=== PATIENT | female | born 1990 | race Two or more races ===

== ENCOUNTER 2017-05-12 11:20 | Inpatient (IN) | payer OTHER ==
--- NOTE | 2017-05-12 11:30 | PDOC ---
History of Present Illness <Pia Retana - Last Filed: 05/12/17 14:39> - History of Present Illness Initial Comments: 26 year old female with no PMH presenting with abdominal pain, nausea and vomiting that has been intermittent over the past two months. She was diagnosed with gallstones on CT two months prior and treated symptomatically in hopes that she would improve. She has been watching her diet but her symptoms haven't improved. She had emesis times 3 on the day of admission. Denies fevers, chills , diarrhea, constipation, chest pain or other sick symptoms. 05/12/17 16:34 <Ismael Wheeler - Last Filed: 05/12/17 18:42> - General Chief Complaint: Pain Stated Complaint: ABD PAIN Time Seen by Provider: 05/12/17 11:26 Past History <Pia Retana - Last Filed: 05/12/17 14:39> - Past Medical History Kidney Stones: Yes - Reproductive History Cervical CA: No Dysfunctional Uterine Bleeding: No Ectopic : No Endometrial CA: No Polycystic Ovaries: No Spontaneous : 1 - Immunization History Immunization Up to Date: Yes - Psycho/Social/Smoking Cessation Hx Anxiety: No Suicidal Ideation: No Smoking Status: No Smoking History: Current some day smoker Have you smoked in the past 12 months: No Number of Cigarettes Smoked Daily: 0 Information on smoking cessation initiated: No Hx Alcohol Use: No Drug/Substance Use Hx: No Substance Use Type: None <Ismael Wheeler - Last Filed: 05/12/17 18:42> - Past Medical History Allergies/Adverse Reactions: Allergies Allergy/AdvReac Type Severity Reaction Status Date / Time No Known Allergies Allergy Verified 05/12/17 11:21 Review of Systems - Review of Systems Constitutional: No: Chills, Diaphoresis, Fever HEENTM: No: Blurred Vision, Double Vision Respiratory: No: Cough, Shortness of Breath Cardiac (ROS): No: Chest Pain, Irregular Heart Rate ABD/GI: Yes: Nausea, Vomiting. No: Constipated, Diarrhea Neurological: No: Headache, Numbness, Paresthesia <Ismael Wheeler - Last Filed: 05/12/17 18:42> *Physical Exam - Vital Signs Last Vital Signs Temp Pulse Resp BP Pulse Ox 98.2 F 80 18 152/92 100 05/12/17 11:22 05/12/17 11:22 05/12/17 11:22 05/12/17 11:22 05/12/17 11:22 <Pia Retana - Last Filed: 05/12/17 14:39> - Vital Signs Last Vital Signs Temp Pulse Resp BP Pulse Ox 98.2 F 80 18 152/92 100 05/12/17 11:22 05/12/17 11:22 05/12/17 11:22 05/12/17 11:22 05/12/17 11:22 - Physical Exam General Appearance: Yes: Nourished, Appropriately Dressed. No: Apparent Distress HEENT: positive: EOMI, JOSE CRUZ, Normal ENT Inspection, Normal Voice Neck: positive: Trachea midline, Normal Thyroid, Supple. negative: Tender, Rigid Respiratory/Chest: positive: Lungs Clear, Normal Breath Sounds. negative: Chest Tender, Respiratory Distress, Accessory Muscle Use Cardiovascular: positive: Regular Rhythm, Regular Rate Gastrointestinal/Abdominal: positive: Normal Bowel Sounds, Tender (Slight epigastric tenderness), Flat, Soft. negative: Organomegaly Musculoskeletal: positive: Normal Inspection. negative: CVA Tenderness Extremity: positive: Normal Capillary Refill, Normal Inspection, Normal Range of Motion Integumentary: positive: Normal Color, Dry, Warm Neurologic: positive: Fully Oriented, Alert, Normal Mood/Affect, Normal Response <Ismael Wheeler - Last Filed: 05/12/17 18:42> Procedures - Bedside Ultrasound Bedside Ultrasound: Gallbladder <Pia Retana - Last Filed: 05/12/17 14:39> ED Treatment Course - LABORATORY CBC & Chemistry Diagram: 05/12/17 12:40 05/12/17 12:40 - ADDITIONAL ORDERS Additional order review: Laboratory Results 05/12/17 05/12/17 05/12/17 12:40 11:53 11:53 Sodium 139 Potassium 4.0 Chloride 105 Carbon Dioxide 26 Anion Gap 8 BUN 11 Creatinine 0.6 D Creat Clearance w eGFR > 60 Random Glucose 74 Calcium 8.5 Total Bilirubin 0.6 AST 16 ALT 26 D Alkaline Phosphatase 58 Total Protein 7.0 Albumin 3.9 Lipase 118 Urine Color Yellow Urine Appearance Slcloudy Urine pH 5.0 D Urine Protein Negative Urine Glucose (UA) Negative Urine Ketones Trace H Urine Blood Negative Urine Nitrite Negative Urine Bilirubin Negative Urine Urobilinogen Negative Ur Leukocyte Esterase Negative Urine HCG, Qual Negative 05/12/17 12:40 RBC 4.12 D MCV 86.1 MCHC 32.7 RDW 15.3 MPV 9.5 D Neutrophils % 73.0 Lymphocytes % 20.9 D Monocytes % 4.4 Eosinophils % 1.0 D Basophils % 0.7 D <Pia Retana - Last Filed: 05/12/17 14:39> - LABORATORY CBC & Chemistry Diagram: 05/12/17 12:40 05/12/17 12:40 <Ismael Wheeler - Last Filed: 05/12/17 18:42> Medical Decision Making - Medical Decision Making 05/12/17 14:39 focused ED ultrsaound RUQ , indication epigastric pain. RUQ scanned in two planes with curvilinear probe. multiple stones noted, no wall thickening, no wall edema. no pericholecystic fluid. negative sonographic marin's . CBD measured 3.9mm anterior gallbladder wall 2.9mm impression: cholelithiaisis <Pia Retana - Last Filed: 05/12/17 14:39> - Medical Decision Making 26 year old female with known gallstones on CT confirmed today on bedside ultrasound with inability to tolerate PO and severe abdominal pain. Patient should be admitted for cholecystectomy. Spoke with Dr. Llanos and he is OK with patient coming in for procedure. Labs WNL and will admit the patient to medicine for cholecystectomy,. 05/12/17 18:26 <Ismael Wheeler - Last Filed: 05/12/17 18:42> *DC/Admit/Observation/Transfer <Pia Retana - Last Filed: 05/12/17 14:39> - Discharge Dispostion Admit: Yes - Attestations Physician Attestion: 05/12/17 15:57 I, Dr. Ismael Wheeler, attest that this document has been prepared under my direction and personally reviewed by me in its entirety. I further attest, that it accurately reflects all work, treatment, procedures and medical decision -making performed by me. 05/12/17 18:42 <Ismael Wheeler - Last Filed: 05/12/17 18:42> Diagnosis at time of Disposition: Cholelithiases - Referrals
[2017-05-12 12:34] LABS: URINE APPEARANCE SLCLOUDY; URINE BILIRUBIN NEGATIVE (NEGATIVE); URINE BLOOD NEGATIVE (NEGATIVE); URINE COLOR YELLOW; URINE GLUCOSE (UA) NEGATIVE (NEGATIVE); URINE KETONE TRACE (NEGATIVE); URINE LEUK ESTERASE NEGATIVE (NEGATIVE); URINE NITRITE NEGATIVE (NEGATIVE); URINE PROTEIN NEGATIVE (NEGATIVE); URINE UROBILINOGEN NEGATIVE mg/dL (0.2-1.0)
[2017-05-12 13:04] LABS: BASOPHIL 0.7 % (0-2.0); MCH 28.1 pg (25.7-33.7); MCHC 32.7 g/dl (32.0-36.0); MEAN CELL VOLUME 86.1 fl (80-96); MEAN PLT VOLUME 9.5 fl (7.5-11.1); PLATELET COUNT 201 K/MM3 (134-434); RDW 15.3 % (11.6-15.6); WHITE BLOOD COUNT 8.3 K/mm3 (4.0-10.0)
[2017-05-12 13:47] LABS: ALBUMIN 3.9 g/dl (3.4-5.0); ANION GAP 8 (8-16); BILIRUBIN,TOTAL 0.6 mg/dL (0.2-1.0); CALCIUM 8.5 mg/dL (8.5-10.1); CO2 26 mmol/L (21-32); CREATININE 0.6 mg/dL (0.55-1.02); GLUCOSE,RANDOM 74 mg/dL (74-106); SGOT/AST 16 U/L (15-37); SGPT/ALT 26 U/L (12-78)
[2017-05-12 13:48] LABS: ALK PHOS 58 U/L (45-117)
[2017-05-12] MEDS ORDERED: MAG HYDROX/AL HYDROX/SIMETH 30 ML UNIT-DOSE CUP PO ONE (14:30)
[2017-05-12] MEDS ORDERED: LIDOCAINE VISCOUS 2% ORAL/TOP 20 ML UNIT-DOSE CUP MM ONE (14:30)
[2017-05-12] MEDS ORDERED: FAMOTIDINE 20 MG/50 ML IVPB 50 ML IVPB ONE ×2 (14:31→15:00)
[2017-05-12] MEDS ORDERED: SODIUM CHLORIDE 0.9% 1000 ML INFUS.BAG IV ONE (14:34)
[2017-05-12] MEDS ORDERED: ONDANSETRON *ODT* 4 MG TABLET SL ONE (14:35)
--- NOTE | 2017-05-12 14:36 | PDOC ---
Attending Attestation - Resident Resident Name: SummerLdfarzad - ED Attending Attestation I have performed the following: I have examined & evaluated the patient, The case was reviewed & discussed with the resident, I agree w/resident's findings & plan, Exceptions are as noted - HPI HPI: 05/12/17 14:31 26 yo F with h/o cholelithiasis here wtih c/o epigastric pain, started few weeks ago. was intermittent for 2 months, but last night became a lot worse, did have nausea and vomiting x one last pm and today. has not eaten anything today out of pain. no f/c no urinary complaints. not . - Physicial Exam PE: 05/12/17 14:34 awake alert lungs clear heart rrr no mrg abd soft mild epigastric pain ttp, no rebound no guarding. ext wpp no edema no swelling. nuero alert and oriented x 3. - Medical Decision Making 05/12/17 14:35 26 yo F with h/o cholelithiasis, here with epigastric pain. differential cholecystitis cholelithiasis, biliary obstruciton gastritis uti, pancreatitis. plan pain control antacid antiemetics, ivf, bedisde ruq ultrasound labs. reasess. 05/12/17 14:36 focused ED ultrsaound RUQ , indication epigastric pain. RUQ scanned in two planes with curvilinear probe. multiple stones noted, no wall thickening, no wall edema. no pericholecystic fluid. negative sonographic marin's . CBD measured 3.9mm anterior gallbladder wall 2.9mm impression: cholelithiaisis
[2017-05-12] MEDS ORDERED: MAG HYDROX/AL HYDROX/SIMETH 30 ML UNIT-DOSE CUP ONE (14:59)
[2017-05-12] MEDS ORDERED: ONDANSETRON 4 MG/2 ML VIAL ONE (14:59)
[2017-05-12] MEDS ORDERED: SODIUM CHLORIDE 1,000 ML IV SCH (17:45)
--- NOTE | 2017-05-12 17:58 | HP ---
CHIEF COMPLAINT: intractable vomiting and abdominal pain PCP: none HISTORY OF PRESENT ILLNESS: 26 yr old woman with hx of nephrolithiasis presents with intractable nonbloody, occasionally bilious vomiting with every meal for the past 2 months. Vomiting occurred regardless of the type of meal, would occur with fatty food and with fruit. Typically consisted of food or yellow-watery in consistency, would occur shortly after eating. Preceded by epigastric and ruq pain that would radiate to the back and sometimes felt like it was burning up her throat. this morning she vomited at 9am, and felt "very bad" epigastric pain radiating up that felt like "burning." She saw dr. Wiggins few weeks ago think this may have been renal stones, he did an abdominal CT; 03/20: which showed gallstones. she tried changing her diet but it did not improve the abdominal pain, or vomiting. In the last 2 months she has been losing weight. She would normally take tylenol which offers some relief. ER course was notable for: (1) famotadine, mylanta (2) discussed case with Dr. 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 several years ago(does not recall trimester) PAST SURGICAL HISTORY: none Social History: Smoking: no cigarettes, smokes [employer] 3xweek for past year Alcohol: socially Drugs: occasional marijuan, last use 2 weeks ago Family History: maternal great grandfather with DM, older sister with cholethiasis who under went cholecystectomy at age 23, mother with HTN, younger sister who had appendectomy at age 12 Allergies No Known Allergies Allergy (Verified 05/12/17 11:21) HOME MEDICATIONS: Has implanted control in her left upper arm REVIEW OF SYSTEMS CONSTITUTIONAL: Present: weight change Absent: fever, chills, diaphoresis, generalized weakness, malaise, loss of appetite HEENT: Absent: rhinorrhea, nasal congestion, throat pain, throat swelling, difficulty swallowing, mouth swelling, ear pain, eye pain, visual changes CARDIOVASCULAR: Absent: chest pain, syncope, palpitations, irregular heart rate, lightheadedness , peripheral edema RESPIRATORY: Absent: cough, shortness of breath, dyspnea with exertion, orthopnea, wheezing, stridor, hemoptysis GASTROINTESTINAL: Present:abdominal pain, nausea, vomiting, Absent: abdominal distension, diarrhea, constipation, melena, hematochezia GENITOURINARY: Absent: dysuria, frequency, urgency, hesitancy, hematuria, flank pain, genital pain MUSCULOSKELETAL: Absent: myalgia, arthralgia, joint swelling, back pain, neck pain SKIN: Absent: rash, itching, pallor HEMATOLOGIC/IMMUNOLOGIC: Absent: easy bleeding, easy bruising, lymphadenopathy, frequent infections ENDOCRINE: Absent: unexplained weight gain, unexplained weight loss, heat intolerance, cold intolerance NEUROLOGIC: Absent: headache, focal weakness or paresthesias, dizziness, unsteady gait, seizure, mental status changes, bladder or bowel incontinence PHYSICAL EXAMINATION GENERAL: Awake, alert, and fully oriented, in no acute distress. HEAD: Normal with no signs of trauma. EYES: Pupils equal, round and reactive to light, extraocular movements intact, sclera anicteric, conjunctiva clear. No lid lag. EARS, NOSE, THROAT: Ears normal, nares patent, oropharynx clear without exudates. Moist mucous membranes. NECK: Normal range of motion, supple without lymphadenopathy, JVD, or masses. LUNGS: Breath sounds equal, clear to auscultation bilaterally. No wheezes, and no crackles. No accessory muscle use. HEART: Regular rate and rhythm, normal S1 and S2 without murmur, rub or gallop. ABDOMEN: Soft, tender in RUQ, negative marin's/obturator/psoas, not distended, normoactive bowel sounds, + guarding in RUQ, no rebound, no masses. No hepatomegaly or splenomegaly. MUSCULOSKELETAL: Normal range of motion at all joints. No bony deformities or tenderness. No CVA tenderness. UPPER EXTREMITIES: 2+ radial pulses, warm, well-perfused. No cyanosis. No clubbing. No peripheral edema. LOWER EXTREMITIES: 2+ dp pulses, warm, well-perfused. No calf tenderness. No peripheral edema. 2 punctate scabs on 1st digit of right foot NEUROLOGICAL: Cranial nerves II-XII intact. Normal speech. PSYCHIATRIC: Cooperative. Good eye contact. Appropriate mood and affect. SKIN: Warm, dry, normal turgor, no rashes or lesions noted, normal capillary refill. ASSESSMENT/PLAN: 26 yr old woman with nephrolithias presents with RUQ abdominal pain and intractable vomiting for 2 months with associated weight loss admitted for cholecystectomy. #Cholelithiasis - likely cause of RUQ pain and vomiting - treated in the ED with famotadine, feels more comfortable, was tolerating chicken soup when examined - as per Dr. Llanos will be taken to the OR for cholecystectomy tomorrow morning - NPO @ midnight, IVF NS @100/hr, famotadine BID IVPB, type and screen #DVT: early ambulation, low risk #Diet: NPO for surgery #Activity: encourage ambulation #F/E/N: NS/no repletion at this time/NPO Visit type - Emergency Visit Emergency Visit: Yes ED Registration Date: 05/12/17 Care time: The patient presented to the Emergency Department on the above date and was hospitalized for further evaluation of their emergent condition. - New Patient This patient is new to me today: Yes Date on this admission: 05/12/17 - Critical Care Critical Care patient: No
[2017-05-12 18:35] VITALS: BMI 29.3
--- NOTE | 2017-05-12 18:47 | PN ---
Teaching Attending Note Name of Resident: Darien Cherry ATTENDING PHYSICIAN STATEMENT I saw and evaluated the patient. I reviewed the resident's note and discussed the case with the resident. I agree with the resident's findings and plan as documented. SUBJECTIVE: No fever or chills, no shortness of breath, c/o having epigastric pain after eating, and vomits after eating for the past 2 months. OBJECTIVE: Vital Signs Temperature 97 F L 05/12/17 18:12 Pulse Rate 76 05/12/17 18:12 Respiratory Rate 18 05/12/17 18:12 Blood Pressure 141/86 05/12/17 18:12 O2 Sat by Pulse Oximetry (%) 100 05/12/17 18:12 CBCD WBC 8.3 K/mm3 (4.0-10.0) D 05/12/17 12:40 RBC 4.12 M/mm3 (3.60-5.2) D 05/12/17 12:40 Hgb 11.6 GM/dL (10.7-15.3) D 05/12/17 12:40 Hct 35.5 % (32.4-45.2) D 05/12/17 12:40 MCV 86.1 fl (80-96) 05/12/17 12:40 MCHC 32.7 g/dl (32.0-36.0) 05/12/17 12:40 RDW 15.3 % (11.6-15.6) 05/12/17 12:40 Plt Count 201 K/MM3 (134-434) D 05/12/17 12:40 MPV 9.5 fl (7.5-11.1) D 05/12/17 12:40 CMP Sodium 139 mmol/L (136-145) 05/12/17 12:40 Potassium 4.0 mmol/L (3.5-5.1) 05/12/17 12:40 Chloride 105 mmol/L (98-107) 05/12/17 12:40 Carbon Dioxide 26 mmol/L (21-32) 05/12/17 12:40 Anion Gap 8 (8-16) 05/12/17 12:40 BUN 11 mg/dL (7-18) 05/12/17 12:40 Creatinine 0.6 mg/dL (0.55-1.02) D 05/12/17 12:40 Creat Clearance w eGFR > 60 (>60) 05/12/17 12:40 Random Glucose 74 mg/dL (74-106) 05/12/17 12:40 Calcium 8.5 mg/dL (8.5-10.1) 05/12/17 12:40 Total Bilirubin 0.6 mg/dL (0.2-1.0) 05/12/17 12:40 AST 16 U/L (15-37) 05/12/17 12:40 ALT 26 U/L (12-78) D 05/12/17 12:40 Alkaline Phosphatase 58 U/L (45-117) 05/12/17 12:40 Total Protein 7.0 g/dl (6.4-8.2) 05/12/17 12:40 Albumin 3.9 g/dl (3.4-5.0) 05/12/17 12:40 Current Medications Generic Name Dose Route Start Last Admin Trade Name Freq PRN Reason Stop Dose Admin Sodium Chloride 1,000 mls @ 75 mls/hr 05/12/17 17:45 05/12/17 18:16 Normal Saline - IV 75 mls/hr ASDIR KELLEE Administration Home Medications Medication Instructions Recorded Acetaminophen [Tylenol] 325 mg PO Q4H PRN 05/12/[address]; 03/20: which showed gallstones PE: as per resident's note. Abdomen: NT,NR,ND , positive for BS, received pain medication ASSESSMENT AND PLAN: 26 yr old woman with nephrolithias presents with RUQ abdominal pain and intractable vomiting for 2 months with associated weight loss admitted for cholecystectomy. #Acute Cholelithiasis - likely cause of RUQ pain and vomiting on IV pepcid as per Dr. Llanos will be taken to the OR for cholecystectomy tomorrow morning - NPO after midnight, IVF NS @100/hr, famotadine BID IVPB, type and screen #DVT: early ambulation, low risk
[2017-05-12 20:38] LABS: INR 1.19 (0.82-1.09); PROTHROMBIN TIME (PATIENT) 13.1 SEC (9.98-11.88)
[2017-05-12 20:41] LABS: ACTIVATED PTT 31.2 SECONDS (26.9-34.4)
[2017-05-12] MEDS: FAMOTIDINE 20 MG/50 ML IVPB 50 ML IVPB SCH (21:42)
--- NOTE | 2017-05-13 08:39 | CONSULT ---
- Consultation REQUESTING PROVIDER: ER MD CONSULT REQUEST: We have been asked to surgically evaluate this patient for abdominal pain. PCP:Myron Braun MD HISTORY OF PRESENT ILLNESS: 26 y/o female presented to the ER w/ recurrent abdominal pain and nausea and vomiting; she was w/u'ed as an outpatient w/ a CT scan of the a/p for presumed kidney stones; she was found to have cholelithiasis and told by the urologist that if she "changed her diet her stones would dissolve"; she came her b/o unrelenting pain. PMHx: none PSHx: none Home Medications Medication Instructions Recorded Acetaminophen [Tylenol] 325 mg PO Q4H PRN 05/12/17 Allergies Allergy/AdvReac Type Severity Reaction Status Date / Time No Known Allergies Allergy Verified 05/12/17 11:21 PHYSICAL EXAM: GENERAL: Awake, alert, and fully oriented, in no acute distress. HEAD: Normal with no signs of trauma. EYES:, sclera anicteric, conjunctiva clear. NECK: Normal ROM, supple without lymphadenopathy, JVD, or masses. ABDOMEN: Soft, slight RUQ tenderness, not distended, normoactive bowel sounds, active guarding, no rebound, no masses. No organomegaly. No hernias MUSCULOSKELETAL: Normal ROM at all joints. No bony deformities or tenderness. No CVA tenderness. UPPER EXTREMITIES: 2+ pulses, warm, well-perfused. No cyanosis. Cap refill <2 seconds. No peripheral edema. LOWER EXTREMITIES: 2+ pulses, warm, well-perfused. No calf tenderness. No peripheral edema. NEUROLOGICAL: Normal speech, gait not observed. PSYCH: Cooperative. Good eye contact. Appropriate mood and affect. SKIN: Warm, dry, normal turgor, no rashes or lesions noted. Vital Signs Temperature 97 F L 05/12/17 18:12 Pulse Rate 76 05/12/17 18:12 Respiratory Rate 18 05/12/17 18:12 Blood Pressure 141/86 05/12/17 18:12 O2 Sat by Pulse Oximetry (%) 100 05/12/17 18:12 Lab Results WBC 8.3 K/mm3 (4.0-10.0) D 05/12/17 12:40 RBC 4.12 M/mm3 (3.60-5.2) D 05/12/17 12:40 Hgb 11.6 GM/dL (10.7-15.3) D 05/12/17 12:40 Hct 35.5 % (32.4-45.2) D 05/12/17 12:40 MCV 86.1 fl (80-96) 05/12/17 12:40 MCHC 32.7 g/dl (32.0-36.0) 05/12/17 12:40 RDW 15.3 % (11.6-15.6) 05/12/17 12:40 Plt Count 201 K/MM3 (134-434) D 05/12/17 12:40 Sodium 139 mmol/L (136-145) 05/12/17 12:40 Potassium 4.0 mmol/L (3.5-5.1) 05/12/17 12:40 Chloride 105 mmol/L (98-107) 05/12/17 12:40 Carbon Dioxide 26 mmol/L (21-32) 05/12/17 12:40 Anion Gap 8 (8-16) 05/12/17 12:40 BUN 11 mg/dL (7-18) 05/12/17 12:40 Creatinine 0.6 mg/dL (0.55-1.02) D 05/12/17 12:40 Random Glucose 74 mg/dL (74-106) 05/12/17 12:40 Calcium 8.5 mg/dL (8.5-10.1) 05/12/17 12:40 Blood Type O POSITIVE 05/12/17 19:45 Antibody Screen Negative 05/12/17 19:45 INR 1.19 (0.82-1.09) H 05/12/17 19:45 LFT's and bili WNL; US /CT scan reviewed. IMP: biliary colic PLAN: Suggest lap deepika possible open which the patient is amenable to; r/b/t/a' s d/w her and she wishes to proceed. Chavez Llanos MD FACS Visit type - Case Type Case Type: ED Admission - Emergency Emergency Visit: Yes ED Registration Date: 05/12/17 Care time: The patient presented to the Emergency Department on the above date and was hospitalized for further evaluation of their emergent condition. - New patient This patient is new to me today: Yes Date on this admission: 05/13/17 - Critical Care Critical Care patient: No
[2017-05-13] MEDS: FAMOTIDINE 20 MG/50 ML IVPB 50 ML IVPB SCH ×2 (09:08→21:25)
[2017-05-13] MEDS ORDERED: ROCURONIUM BROMIDE 50 MG/5 ML VIAL ONE (11:58)
[2017-05-13] MEDS ORDERED: PROPOFOL 20 ML ONE (11:58)
[2017-05-13] MEDS ORDERED: LIDOCAINE HCL 2% (20ML MULTI-DOSE VIAL) NR ONE (11:58)
[2017-05-13] MEDS ORDERED: MIDAZOLAM HCL 2 MG/2 ML SINGLE DOSE VIAL ONE (11:58)
[2017-05-13] MEDS ORDERED: BUPIVACAINE HCL/PF 0.5% (5MG/ML) 10 ML VIAL ONE (12:49)
[2017-05-13] MEDS ORDERED: ceFAZolin SODIUM 1 GM VIAL ONE (12:51)
[2017-05-13] MEDS ORDERED: ceFAZolin SODIUM 1 GM VIAL IVPB ONE (12:53)
[2017-05-13] MEDS ORDERED: HYDROmorphone HCL CARPU-JECT 1 MG/1 ML DISP.SYRIN IVPUSH PRN (13:49)
[2017-05-13] MEDS ORDERED: PROMETHAZINE HCL 25 MG/1 ML VIAL IVPUSH PRN ×2 (13:49→15:37)
[2017-05-13] MEDS ORDERED: NEOSTIGMINE METHYLSULFATE 0.5 MG/ML - 10 ML MDV ONE (14:49)
[2017-05-13] MEDS ORDERED: GLYCOPYRROLATE 0.2 MG/1 ML VIAL ONE (14:49)
[2017-05-13] MEDS ORDERED: BUPIVACAINE HCL/PF 0.5% (5MG/ML) 10 ML VIAL IJ ONE ×2 (14:50)
[2017-05-13] MEDS ORDERED: KETOROLAC TROMETHAMINE 30 MG/1 ML VIAL ONE (14:55)
[2017-05-13] MEDS ORDERED: DEXAMETHASONE SOD PHOSPHATE 4 MG/1 ML VIAL ONE (14:55)
--- NOTE | 2017-05-13 15:06 | OP ---
Operative Note - Note: Operative Date: 05/13/17 Pre-Operative Diagnosis: cholelithiasis Operation: laparoscopic cholecystectomy Post-Operative Diagnosis: Same as Pre-op Surgeon: Chavez Llanos Daub Color Mixer: Karli Diaz Anesthesiologist/HOT REPAIRMAN: Elicia Dunaway Anesthesia: General Estimated Blood Loss (mls): 30 Fluid Volume Replaced (mls): 1,600 Operative Report Dictated: Yes
[2017-05-13] MEDS ORDERED: oxyCODONE HCL 5 MG TABLET PO PRN ×2 (15:09)
[2017-05-13] MEDS ORDERED: ONDANSETRON 4 MG/2 ML VIAL ONE (15:25)
[2017-05-13] MEDS: SODIUM CHLORIDE 1,000 ML IV SCH ×2 (16:02→23:05)
--- NOTE | 2017-05-13 18:06 | PN ---
Physical Exam: SUBJECTIVE: Patient seen and examined this AM. No CP, no SOB, no fevers, no chills. OBJECTIVE: Vital Signs Period Temp Pulse Resp BP Sys/Oliver Pulse Ox Last 24 Hr 97 F-98.5 F 8-100 14-20 125-141/70-86 98-100 GEN: AAOx3, NAD HEENT: PERRLA, EOMi, No cervical LAD CV: S1, S2, RRR, 2/6 systolic murmur LUNG: CTABL, no wheezes Abd: RUQ tenderness to palpation, soft, no guarding, no rebound MSK: No edema, no erythema, normal ROM Neuro: CN 2-12 intact, sensation intact, reflexes 2+, MSK 5/5 Laboratory Results - last 24 hr 05/12/17 05/12/17 19:45 19:45 INR 1.19 H PTT (Actin FS) 31.2 Blood Type O POSITIVE Antibody Screen Negative Active Medications Generic Name Dose Route Start Last Admin Trade Name Freq PRN Reason Stop Dose Admin Acetaminophen 650 mg 05/13/17 17:41 Tylenol - PO Q6H PRN FEVER OR PAIN Heparin Sodium (Porcine) 5,000 unit 05/13/17 22:00 Heparin - SQ TID KELLEE Famotidine/Sodium Chloride 50 mls @ 100 mls/hr 05/13/17 22:00 Pepcid 20 Mg Premixed Ivpb - IVPB BID KELLEE Sodium Chloride 1,000 mls @ 75 mls/hr 05/13/17 15:37 05/13/17 16:02 Normal Saline - IV 0 mls ASDIR KELLEE Administration Ketorolac Tromethamine 30 mg 05/13/17 23:00 Toradol Injection - IVPUSH 05/18/17 22:59 Q8H-IV KELLEE Oxycodone HCl 5 mg 05/13/17 15:09 Roxicodone - PO Q6H PRN PAIN LEVEL 1-5 Oxycodone HCl 10 mg 05/13/17 15:09 Roxicodone - PO Q6H PRN PAIN LEVEL 6-10 Promethazine HCl 12.5 mg 05/13/17 15:37 Phenergan Injection - IVPUSH 05/13/17 19:50 Q6H PRN NAUSEA-FOR RESCUE AFTER 15 MIN ASSESSMENT/PLAN: Ms. Parker is a 26 yr old woman with nephrolithias presents with RUQ abdominal pain and intractable vomiting for 2 months with associated weight loss admitted for cholecystectomy. # Cholelithiasis - Will go for cholecystectomy today - NPO until postop - IVNS 100cc/hr # ?GERD - Pt on famotidine after epigastric pain s/p emesis - Feels much better # FEN - Fluids: 100cc/hr IVNS - Electrolytes: No abnormalities - Nutrition: NPO # Prophylaxis - DVT: Hep SQ 5,000 TiD - GI: Not indicated - Deconditioning: pt is ambulatory # Dispo - Likely d/c tomorrow after surgery Visit type - Emergency Visit Emergency Visit: No - New Patient This patient is new to me today: No - Critical Care Critical Care patient: No - Discharge Referral Referred to [facility] Med P.C.: No
--- NOTE | 2017-05-13 18:25 | SURG ---
Surgery Feed Mill Manager Note Feed Mill Manager: Karli Diaz PA-C Date of Service: 05/13/17 Diagnosis: cholelithiasis Procedure: laparoscopic cholecystectomy I was present for the entirety of the operative procedure. For further detail, please refer to operative report. Visit type - Case Type Case Type: ED Admission - Emergency Emergency Visit: Yes ED Registration Date: 05/12/17 Care time: The patient presented to the Emergency Department on the above date and was hospitalized for further evaluation of their emergent condition. - New patient This patient is new to me today: Yes Date on this admission: 05/13/17 - Critical Care Critical Care patient: No
[2017-05-13] MEDS: HEPARIN NA (PORCINE) 5,000 UNITS/ML 1ML VIAL SQ SCH (21:25)
[2017-05-13] MEDS ORDERED: KETOROLAC TROMETHAMINE 30 MG/1 ML VIAL IVPUSH SCH (23:00)
[2017-05-14] MEDS: HEPARIN NA (PORCINE) 5,000 UNITS/ML 1ML VIAL SQ SCH ×2 (06:11→13:41)
[2017-05-14 07:38] LABS: BASOPHIL 0.2 % (0-2.0); MCHC 32.4 g/dl (32.0-36.0); MEAN CELL VOLUME 86.4 fl (80-96); MEAN PLT VOLUME 9.9 fl (7.5-11.1); NEUTROPHILS 83.9 % (42.8-82.8); PLATELET COUNT 211 K/MM3 (134-434); RDW 15.4 % (11.6-15.6); WHITE BLOOD COUNT 12.9 K/mm3 (4.0-10.0)
[2017-05-14 08:01] LABS: ALBUMIN 3.7 g/dl (3.4-5.0); ANION GAP 10 (8-16); BILIRUBIN,DIRECT 0.2 mg/dL (0.0-0.2); BILIRUBIN,TOTAL 0.7 mg/dL (0.2-1.0); CALCIUM 8.7 mg/dL (8.5-10.1); CO2 24 mmol/L (21-32); CREATININE 0.7 mg/dL (0.55-1.02); GLUCOSE,RANDOM 85 mg/dL (74-106); SGOT/AST 31 U/L (15-37); SGPT/ALT 65 U/L (12-78); TOT PROT 6.8 g/dl (6.4-8.2)
[2017-05-14 08:02] LABS: ALK PHOS 60 U/L (45-117)
--- NOTE | 2017-05-14 08:21 | PN ---
Teaching Attending Note Name of Resident: John Fontanez ATTENDING PHYSICIAN STATEMENT I saw and evaluated the patient. I reviewed the resident's note and discussed the case with the resident. I agree with the resident's findings and plan as documented. SUBJECTIVE: OBJECTIVE: ASSESSMENT AND PLAN: 26 yr old woman with nephrolithias presents with RUQ abdominal pain and intractable vomiting for 2 months with associated weight loss admitted for cholecystectomy. #Acute Cholelithiasis - likely cause of RUQ pain and vomiting on IV pepcid as per Dr. Llanos will be taken to the OR for cholecystectomy tomorrow morning - NPO after midnight, IVF NS @100/hr, famotadine BID IVPB, type and screen #DVT: early ambulation, low risk
[2017-05-14] MEDS: FAMOTIDINE 20 MG/50 ML IVPB 50 ML IVPB SCH (09:34)
--- NOTE | 2017-05-14 09:36 | PN ---
Progress Note (short form) - Note Progress Note: Attending Surgeon POD #1 s/p lap deepika Minimal c/o pain; voided post op; tolerated clear liquid diet VSS AF abdo-soft; port site tenderness; dressings C/DI; RAEANN serosanguinous LFT's/labs reviewed INP: doing well PLAN: OOB; advance diet; leave drain until later today. Chavez Llanos MD FACS
[2017-05-14] MEDS: ACETAMINOPHEN 325 MG TABLET (FP) PO PRN ×2 (09:37→17:29)
--- NOTE | 2017-05-14 11:07 | PN ---
Progress Note (short form) - Note Progress Note: Anesthesia post op Pt seen and examined S:alert aND AWAKE O: Vital Signs Temperature 98.3 F 05/14/17 09:30 Pulse Rate 72 05/14/17 09:30 Respiratory Rate 18 05/14/17 09:30 Blood Pressure 143/75 05/14/17 09:30 O2 Sat by Pulse Oximetry (%) 97 05/14/17 03:00 CBC, BMP 05/14/17 06:50 05/14/17 06:50 a/P: Current Active Problems Cholelithiases (Acute) s/p lap deepika Doing well post op Continue current care Ken Diez MD
[2017-05-14 14:32] VITALS: TEMP 98.6
--- NOTE | 2017-05-14 14:44 | PN ---
Teaching Attending Note Name of Resident: John Fontanez ATTENDING PHYSICIAN STATEMENT I saw and evaluated the patient. I reviewed the resident's note and discussed the case with the resident. I agree with the resident's findings and plan as documented. SUBJECTIVE: OBJECTIVE: Vital Signs Period Temp Pulse Resp BP Sys/Oliver Pulse Ox Last 24 Hr 97.6 F-98.9 F 8-100 14-22 123-153/62-88 97-100 ASSESSMENT AND PLAN:
--- NOTE | 2017-05-14 17:07 | PN ---
Progress Note (short form) - Note Progress Note: RAEANN drain removed intact, 2x2 gauze/ tegaderm applied. The patient tolerated a regular diet and is stable for discharged. D/w the medical team the plan. Pt may shower in the am.
[2017-05-14 17:11] VITALS: BP 141/86; PULSE 70
--- NOTE | 2017-05-14 21:08 | DS ---
Physical Exam: SUBJECTIVE: Patient seen and examined this AM. She had no complaints. No fevers , no chills, no SOB, no CP. Recovering well. OBJECTIVE: Vital Signs Period Temp Pulse Resp BP Sys/Oliver Pulse Ox Last 24 Hr 98.3 F-98.9 F 67-72 18-20 123-143/62-86 97-100 PHYSICAL EXAM GEN: AAOx3, NAD HEENT: PERRLA, EOMi, No cervical LAD CV: S1, S2, RRR, 2/6 systolic murmur LUNG: CTABL, no wheezes Abd: RUQ tenderness to palpation, soft, no guarding, no rebound MSK: No edema, no erythema, normal ROM Neuro: CN 2-12 intact, sensation intact, reflexes 2+, MSK 5/5 LABS Laboratory Results - last 24 hr 05/14/17 05/14/17 06:50 06:50 WBC 12.9 H D RBC 4.19 Hgb 11.7 Hct 36.3 MCV 86.4 MCH 28.0 MCHC 32.4 RDW 15.4 Plt Count 211 MPV 9.9 Neutrophils % 83.9 H Lymphocytes % 11.4 D Monocytes % 4.5 Eosinophils % 0.0 D Basophils % 0.2 Sodium 141 Potassium 4.0 Chloride 107 Carbon Dioxide 24 Anion Gap 10 BUN 7 D Creatinine 0.7 Random Glucose 85 Calcium 8.7 Total Bilirubin 0.7 Direct Bilirubin 0.2 AST 31 D ALT 65 D Alkaline Phosphatase 60 Total Protein 6.8 Albumin 3.7 HOSPITAL COURSE: Date of Admission:05/12/17 Date of Discharge: 05/14/17 Ms. Praker is a 26 yr old woman with nephrolithias who presented with RUQ abdominal pain and intractable vomiting for 2 months with associated weight loss admitted for cholelithiasis and received a cholecystectomy. # Cholelithiasis - The patient received her laparoscopic cholecystectomy on 05/13/17 and it was uncomplicated. A RAEANN drain was placed in the surgical site, which drained about 90cc of serosanguinous fluid. The patient recovered quickly, and tolerated advancements in her diet. She had no further bouts of abdominal pain or nausea. The surgery team came and removed the RAEANN drain, and cleared the patient for discharge. For all other chronic medical problems we continued the patient on her home medications The patient was aware of the hospital course and agreed with the plan to discharge home. Minutes to complete discharge: 55 Discharge Summary Reason For Visit: CHOLELITHIASIS Current Active Problems Cholelithiases (Acute) Condition: Improved - Instructions Diet, Activity, Other Instructions: Dr. Llanos Discharge Instructions Dear ARELY PARKER, Post Operative Instructions Physical activity Resume your normal everyday activity as tolerated no heavy lifting or exercise until seen by your surgeon. You may walk unlimited amounts of and climb stairs. You may resume driving the car when you feel safe and comfortable behind the wheel. Wound care If you have a bandage, leave it on, and keep dry for 48 - 72 hours. After that time discard the outer bandage. If there are tapes on the skin under the outer bandage, leave them in place. They will peel off in the next 7 to 10 days. Do Not peel them off. You may shower 2 days after surgery. If there are tapes present on the skin, they can get wet. Diet There are no dietary restrictions. Eat healthy, high-fiber foods. Drink 6 to 8 glasses of liquid each day. This will assist in keeping your bowels are regular. Pain management You may take Tylenol or acetaminophen or Ibuprofen (for example, Motrin, Advil etc.) Any pain prescription medication ordered should be taken as prescribed for moderate to severe pain. Call Dr. Llanos for any of the following: Severe pain not relieved by medication Fever of 101 or higher Excessive bleeding or drainage on dressing Inability to urinate Call the office at [phone] for a post operative appointment in 7 - 10 days. Referrals: Musa Parish MD [Primary Care Provider] - Disposition: HOME - Home Medications Comprehensive Discharge Medication List: Ambulatory Orders Acetaminophen [Tylenol] 325 mg PO Q4H PRN #30 tab 05/14/17 This patient is new to me today: No Emergency Visit: No Critical Care patient: No - Discharge Referral Referred to [facility] No
--- NOTE | 2017-05-15 08:44 | OP ---
DATE OF OPERATION: 05/13/2017 PREOPERATIVE DIAGNOSES: Acute cholecystitis, cholelithiasis. POSTOPERATIVE DIAGNOSES: Acute cholecystitis, cholelithiasis. PROCEDURE: Laparoscopic cholecystectomy. SURGEON: Chavez Llanos MD [employer] MEMBER: Karli Diaz PA-C ANESTHESIA: General. OPERATIVE FINDINGS: Acute cholecystitis and cholelithiasis. The rest of the findings were unremarkable. DESCRIPTION OF PROCEDURE: The patient was placed on the operating table in supine position, and after the induction of general anesthesia, patient's abdomen was prepped with ChloraPrep and draped in sterile fashion. A timeout was taken and pneumoperitoneum established above the umbilicus using a Veress needle to a pressure of 15 mmHg. Next, a 5-mm port was placed and laparoscopy was carried out and the previously noted findings were observed. In addition, there were adhesions of omentum to the gallbladder. Additional lateral 5-mm ports and a subxiphoid 12-mm port were placed, and then, the gallbladder was placed on cephalad and lateral traction. Omentum adherent to the gallbladder was taken down using electrocautery. The neck of the gallbladder was identified, and then, the parietal peritoneum over the neck of the gallbladder was opened medially and laterally using the electrocautery. Blunt dissection continued to isolate the cystic duct which was coursing from the neck of the gallbladder distally to the common bile duct, and the cystic artery was additionally identified medially and dissected out using blunt and sharp dissection. A critical view of safety was taken, and then, the duct and artery were divided using EndoShears after being serially clipped with 2 large hemoclips proximally and distally. The gallbladder was then removed from the liver bed in a retrograde fashion using electrocautery. A posterior branch of the cystic artery was found on the dissection, and it was divided between large hemoclips as well. The gallbladder was then removed from the edge of the liver and placed in a specimen retrieval bag and brought out through the subxiphoid port. Pneumoperitoneum was re-established, and hemostasis checked for and noted to be good. Copious irrigation was carried out until the effluent was clear, and then, a 10-mm Dickson-Williamson drain was placed in the right hepatorenal fossa and brought out through one of the 5-mm port sites and secured to the skin with 2-0 silk suture. Hemostasis was again verified and then all ports removed under laparoscopic vision and the pneumoperitoneum relieved. All port sites were infiltrated with 0.50% Marcaine and the skin edges closed with 4-0 Biosyn in a subcuticular fashion. The drain was connected to bulb suction, and the patient aroused from general anesthesia and transferred to the postanesthesia care unit in stable condition, awake and alert. ESTIMATED BLOOD LOSS: Approximately 30 mL. REPLACEMENTS: Crystalloid. DRAINS: One 10-mm Dickson-Williamson. SPECIMEN: Gallbladder and contents to Pathology. I, Cahvez Llanos, was physically present in the operating room from the time the patient was placed on the operating table until she was transferred to the postanesthesia care unit in my accompaniment. MD LIZABETH Aldridge/[id number]
--- NOTE | 2017-05-15 12:48 | PATH ---
Surgical Pathology Report Patient Name: ARELY WIGGINS Med. Rec. #: [id number] /Age/Gender: 1990 (Age: 26) / F Account: [id number] Location: [facility] MED/SURG Taken: 05/13/2017 Received: 05/14/2017 Reported: 05/15/2017 Physicians: Chavez Llanos MD Specimen(s) Received GALLBLADDER Clinical History Cholelithiasis Final Diagnosis GALLBLADDER, CHOLECYSTECTOMY: CHRONIC CHOLECYSTITIS, CHOLESTEROLOSIS, AND CHOLELITHIASIS. Electronically Signed Delonte Pitt M.D. Gross Description Received in formalin labelled "gallbladder and" is an 8.5 x 3.0 x 2.8 cm gallbladder with a smooth shiny gonzalez purple serosa, and up to 0.3 cm thick wall, and a velvety green bile-stained mucosa. No distinct lesion is identified. Within the lumen of the gallbladder are 8 green and yellow calculi each of which is between 0.8 and 1.5 cm in greatest dimension. Lacquer Sizer sections are submitted in one cassette. [facility]/05/14/2017 [facility]/05/14/2017
== END 2017-05-14 18:18 | disposition home or self-care (01) | DRG 263 ==
LOC: JER 11:20 → JERBED 15:52 → J7W 18:55
PROVIDERS: ADMIT Internal Medicine; ATTEND Internal Medicine
PROC: 0FT44ZZ Resection of Gallbladder, Percutaneous Endoscopic Approach (ICD-10-PCS; principal; 2017-05-13 12:30)
DX: K80.20 Calculus of gallbladder without cholecystitis without obstruction (principal); F17.290 Nicotine dependence, other tobacco product, uncomplicated; F12.10 Cannabis abuse, uncomplicated; K21.9 Gastro-esophageal reflux disease without esophagitis
CPT/HCPCS: 36415; 76705-TC; 80048; 80053; 80076; 81003; 83690; 84703; 85025; 85610; 85730; 86850; 86900; 86901; 87086; 88304-TC; 94760; 99284-25; J1644

== ENCOUNTER 2021-06-06 08:32 | Emergency (ER) | payer OTHER ==
[2021-06-06 08:49] VITALS: BP 126/81; PULSE 79; TEMP 98.1; BMI 29.9
[2021-06-06] MEDS ORDERED: KETOROLAC TROMETHAMINE 30 MG/1 ML VIAL IM ONE (09:15)
[2021-06-06] MEDS ORDERED: diazePAM 5 MG TABLET PO ONE (09:15)
[2021-06-06] MEDS ORDERED: KETOROLAC TROMETHAMINE 30 MG/1 ML VIAL ONE (09:18)
[2021-06-06] MEDS ORDERED: diazePAM 5 MG TABLET ONE (09:18)
== END 2021-06-06 09:35 | disposition home or self-care (01) ==
LOC: JERFT 08:32
PROC: 3E0233Z Introduction of Anti-inflammatory into Muscle, Percutaneous Approach (ICD-10-PCS; principal; 2021-06-06)
DX: M54.31 Sciatica, right side (principal)
CPT/HCPCS: 99283-25